=== PATIENT | male | born 1945 | race Caucasian/White ===

== ENCOUNTER 2016-08-12 08:24 | Day surgery (SDC) | payer MEDICARE ==
[~2016-08-12 08:24] MED LIST: Lactated Ringers 1,000 ML IV SCH
[2016-08-12] MEDS ORDERED: Lactated Ringers 1,000 ML IV SCH (09:00)
[2016-08-12] MEDS ORDERED: Midazolam 1 MG/ML 2 ML SDV ONE (09:09)
[2016-08-12] MEDS ORDERED: fentaNYL 100 MCG/2 ML SDV ONE (09:09)
[2016-08-12] MEDS ORDERED: Propofol 200 MG/20 ML SDV ONE (09:09)
[2016-08-12 11:16] VITALS: BP 110/69
--- NOTE | 2016-08-12 14:07 | OR ---
DATE OF PROCEDURE: 08/12/2016 PREOPERATIVE DIAGNOSIS: Colon cancer screening. POSTOPERATIVE DIAGNOSES: Small right colon polyp. PROCEDURE PERFORMED: Colonoscopy to the cecum with biopsy resection of a small right colon polyp. ANESTHESIA: IV anesthesia with monitored anesthesia care. INDICATION: This 71-year-old white male is referred for a colonoscopy for colon cancer screening. His last colonoscopic exam he says was in 2005. I counseled him for the procedure including risks alternatives, and he gave his informed consent to proceed. DESCRIPTION OF PROCEDURE: The patient was placed in lateral decubitus position. IV anesthesia was administered by the Anesthesia Service. Time-out was held. A rectal exam was performed, which was unremarkable. The flexible video Olympus colonoscope was introduced through his anus, up his rectum, and out his colon all way to the cecum. En route, in the right colon we saw a small polyp, which was removed with a couple of bites of the biopsy forceps. Once the cecum was reached, the scope was slowly withdrawn examining the mucosa throughout. No additional mucosal abnormalities were noted. The scope was retroflexed in the rectum with the distal rectum appearing unremarkable. The scope was straightened and removed. He tolerated the procedure well. Bassam Anglin MD /[id number] TONY
== END 2016-08-12 11:40 | disposition home or self-care (01) ==
LOC: JP.SDS 08:24
PROVIDERS: ATTEND Surgery
DX: Z12.11 Encounter for screening for malignant neoplasm of colon (principal); D12.6 Benign neoplasm of colon, unspecified; I10 Essential (primary) hypertension; E78.00 Pure hypercholesterolemia, unspecified
CPT/HCPCS: 45380; J2250; J2704; J3010; J7120; 88305

== ENCOUNTER 2020-03-28 06:28 | Day surgery (SDC) | payer MEDICARE ==
[2020-03-28] MEDS ORDERED: Sodium Chloride 0.9% 1,000 ML IV SCH (07:00)
[2020-03-28] MEDS ORDERED: Propofol 200 MG/20 ML SDV ONE (07:24)
[2020-03-28] MEDS ORDERED: fentaNYL 100 MCG/2 ML SDV ONE (07:24)
[2020-03-28 09:09] VITALS: BP 123/88; PULSE 72
--- NOTE | 2020-03-29 12:22 | OR ---
DATE OF PROCEDURE: 03/28/2020 SURGEON: Mkie Paz MD PROCEDURE: Colonoscopy. FINDINGS: Normal colonoscopy. COMPLICATIONS: None. 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 ANESTHESIA: MAC. PREOPERATIVE DIAGNOSIS: Screening colonoscopy. POSTOPERATIVE DIAGNOSIS: Screening colonoscopy. RISKS: Risks, benefits, alternatives, and limitations including, but not limited to infection, bleeding, and perforation were explained to the patient who wished to proceed. PROCEDURE IN DETAIL: The patient was placed in left lateral decubitus position. Digital rectal exam was performed without abnormality. Scope was introduced and advanced atraumatically to the ileocecal valve. A photo was taken. The scope was brought back to the ascending, transverse, descending colon, and retroflexed. No evidence of old or new blood. No masses. No polyps. No diverticulosis. No colitis. No abnormalities on retroflexion. Greater than 10 minutes spent removing the scope. The patient tolerated the procedure well. Mike Paz MD /[id number]
== END 2020-03-28 09:12 | disposition home or self-care (01) ==
LOC: JP.SDS 06:28
PROVIDERS: ATTEND Surgery
DX: Z12.11 Encounter for screening for malignant neoplasm of colon (principal); I10 Essential (primary) hypertension; Z88.8 Allergy status to other drugs, medicaments and biological substances
CPT/HCPCS: G0121; J2704; J3010; J7030